=== PATIENT | female | born 1970 | race African-American/Black ===

== ENCOUNTER 2017-09-02 11:37 | Outpatient (CLI) | payer OTHER | END 2017-09-02 11:38 | disposition home or self-care (01) | LOC: DTY/OP 11:37 | PROVIDERS: ATTEND Specialist | DX: Z01.818 Encounter for other preprocedural examination (principal); E66.01 Morbid (severe) obesity due to excess calories | CPT/HCPCS: 97802 ==

== ENCOUNTER 2017-09-10 20:30 | Outpatient (CLI) | payer OTHER | END 2017-09-10 20:31 | disposition home or self-care (01) | LOC: SLEEPLAB 20:30 | PROVIDERS: ATTEND Family Medicine | DX: G47.33 Obstructive sleep apnea (adult) (pediatric) (principal); F32.9 Major depressive disorder, single episode, unspecified; E11.9 Type 2 diabetes mellitus without complications; I10 Essential (primary) hypertension; R06.83 Snoring; E66.9 Obesity, unspecified | CPT/HCPCS: 95811 ==

== ENCOUNTER 2017-09-13 13:31 | Inpatient (IN) | payer OTHER ==
[2017-09-22] MEDS ORDERED: Ketorolac Tromethamine 30 MG/ML VIAL ONE (08:09)
[2017-09-22] MEDS ORDERED: Scopolamine 1.5 mg/72 hour Patch ONE (08:09)
[2017-09-22] MEDS ORDERED: Heparin 5,000 UNITS/ML VIAL SC SCH (08:15)
[2017-09-22] MEDS ORDERED: Acetaminophen 1,000 MG in Premix Bag 1 BAG IVPB SCH (08:15)
[2017-09-22] MEDS ORDERED: cefOXitin 2 GM, Syringe 1 ML in Sterile Water 10 ML SLOW IVP SCH (08:15)
[2017-09-22] MEDS ORDERED: Ketorolac Tromethamine 30 MG/ML VIAL IVP SCH (08:15)
[2017-09-22] MEDS ORDERED: Heparin 5,000 UNITS/ML VIAL ONE (08:21)
[2017-09-22] MEDS ORDERED: Scopolamine 1.5 mg/72 hour Patch TOP SCH (08:30)
[2017-09-22] MEDS ORDERED: Bupivacaine/Epinephrine 0.25% 30 ML VIAL ONE (09:26)
[2017-09-22] MEDS ORDERED: Fentanyl 250 MCG/5 ML VIAL ONE (09:51)
[2017-09-22] MEDS ORDERED: Midazolam HCl 2 mg/2 ml Vial ONE (09:51)
[2017-09-22] MEDS ORDERED: Promethazine HCl 25 MG/ML VIAL ONE (12:24)
[2017-09-22] MEDS ORDERED: Ondansetron HCl/PF 4 MG/2 ML Vial IVP PRN (12:53)
[2017-09-22] MEDS ORDERED: Non-Formulary Medication 1 EACH PO PRN (12:53)
[2017-09-22] MEDS ORDERED: Meperidine HCl/PF 25 MG/ML VIAL SLOW IVP PRN (12:53)
[2017-09-22] MEDS ORDERED: Ketorolac Tromethamine 30 MG/ML VIAL IM/IV PRN (12:53)
[2017-09-22] MEDS ORDERED: Promethazine HCl 25 MG/ML VIAL IM/IV PRN (12:53)
[2017-09-22] MEDS ORDERED: Dextrose 50% Abboject 50 ML SYRINGE SLOW IVP PRN (13:42)
[2017-09-22] MEDS ORDERED: Morphine 4 MG/ML VIAL SLOW IVP PRN (13:42)
[2017-09-22] MEDS ORDERED: diphenhydrAMINE 50 MG/ML VIAL IVP PRN (13:42)
[2017-09-22] MEDS ORDERED: Promethazine HCl 25 MG/ML VIAL IM PRN (13:42)
[2017-09-22] MEDS ORDERED: hydrALAZINE 20 MG/ML VIAL SLOW IVP PRN (13:42)
[2017-09-22] MEDS ORDERED: Hydrocodone-Acetamin 15 ML UDCUP PO PRN (13:42)
[2017-09-22] MEDS ORDERED: Dextrose 5% in Water 1,000 ML IV PRN (13:42)
[2017-09-22] MEDS ORDERED: Insulin Regular 300 UNITS/3 ML VIAL SC PRN (13:42)
[2017-09-22] MEDS ORDERED: Lidocaine 1% PF 5 ML VIAL ONE (13:56)
[2017-09-22] MEDS ORDERED: Propofol 200 MG/20 ML VIAL ONE (13:56)
[2017-09-22] MEDS ORDERED: Ondansetron HCl/PF 4 MG/2 ML Vial ONE (13:56)
[2017-09-22] MEDS ORDERED: Glycopyrrolate 0.2 MG/ML 5 ML SYRINGE ONE (13:56)
[2017-09-22] MEDS ORDERED: PHENYLEPHRINE-NS 100 MCG/ML 10 ML SYRINGE ONE (13:56)
[2017-09-22] MEDS: Morphine 4 MG/ML VIAL SLOW IVP PRN ×2 (14:15→21:45)
[2017-09-22] MEDS: Ondansetron HCl/PF 4 MG/2 ML Vial IVP PRN ×2 (14:16→21:44)
[2017-09-22] MEDS: 1/2 NS w/KCL 20 mEq 1,000 ML IV SCH (14:18)
[2017-09-22 15:21] VITALS: BMI 42.2
[2017-09-22] MEDS: Ketorolac Tromethamine 30 MG/ML VIAL IVP SCH (18:05)
[2017-09-22] MEDS ORDERED: Enoxaparin Sodium 40 MG/0.4 ML SYRINGE SC SCH (21:00)
[2017-09-23] MEDS: 1/2 NS w/KCL 20 mEq 1,000 ML IV SCH ×2 (00:16→07:16)
[2017-09-23] MEDS: Ketorolac Tromethamine 30 MG/ML VIAL IVP SCH ×3 (00:17→13:42)
[2017-09-23 05:39] LABS: #Basophils 0.1 thou/uL (0.0-0.2); #Eosinphils 0.1 thou/uL (0.0-0.7); #Neutrophils 6.8 thou/uL (1.40-6.50); %Basophils 0.5 % (0.0-1.0); %Eosinophils 0.8 % (0.0-10.0); %Lymphocytes 27.4 % (21.0-51.0); %Monocytes 9.2 % (0.0-10.0); Hemoglobin 12.3 g/dL (12.0-16.0); Mean Corpuscular HGB CONC 33.2 g/dL (32.0-36.0); Mean Corpuscular Hemoglobin 31.9 pg (27.0-31.0); Mean Platelet Volume 7.1 fL (7.4-10.4); Platelet Count 269 thou/uL (130-400); RBC Distribution Width 11.8 % (11.5-14.5); Red Blood Cell (RBC) Count 3.86 mill/uL (4.20-5.40)
[2017-09-23 06:06] LABS: Anion Gap 12 mmol/L (10-20); BUN (Urea Nitrogen) 6 mg/dL (7.0-18.7); Calc. Creatinine Clearance 161 mL/min (70-130); Calcium 8.2 mg/dL (7.8-10.44); Carbon Dioxide 26 mmol/L (22-29); Chloride 101 mmol/L (98-107); Estimated GFR-MDRD Greater than 90; Glucose 80 mg/dL (70-105); Potassium 3.5 mmol/L (3.5-5.1); Sodium 135 mmol/L (136-145)
[2017-09-23] MEDS ORDERED: FLU VACC QS2017-18 36 mo. & older 0.5 ML SYRINGE IM ONE (09:00)
[2017-09-23] MEDS ORDERED: Pantoprazole 40 MG VIAL IVP SCH (09:00)
--- NOTE | 2017-09-23 10:45 | RAD ---
LIMITED UPPER GI WITH 15 ML OF ORAL GASTROGRAFIN: HISTORY: Recent post bariatric surgery (vertical sleeve gastrectomy). FINDINGS: There is prompt passage of contrast from the esophagus into the gastric remnant. No contrast extrava sation is seen. IMPRESSION: No evidence of obstruction or leak. POS: JANIE
[2017-09-23 12:40] VITALS: BP 124/88; TEMP 98.1
--- NOTE | 2017-09-24 14:46 | OP ---
DATE OF PROCEDURE: 09/22/2017 PREOPERATIVE DIAGNOSIS: Morbid obesity. POSTOPERATIVE DIAGNOSIS: Morbid obesity. OPERATION PERFORMED: Laparoscopic vertical sleeve gastrectomy. SURGEON: Wilmer Brody M.D. ANESTHESIA: General endotracheal. INDICATIONS: The patient is a 47-year-old morbidly obese black female. She has undergone preoperati ve education and evaluation and presents today for sleeve gastrectomy. OPERATIVE PROCEDURE IN DETAIL: Informed consent was obtained. The patient was taken to the operatin g room where general endotracheal anesthesia was obtained with the patient in supine position. Abdom en was clipped of hair, prepped with ChloraPrep, and draped in sterile fashion. Local anesthetic was infiltrated using 0.25% Marcaine with epinephrine and a 5 mm supraumbilical incision was created thr ough which a Veress needle was passed into the peritoneal cavity and pneumoperitoneum established usi ng carbon dioxide up to a pressure of 15 mmHg. A 5 mm trocar port was passed through this same incis ion. Laparoscopic camera was passed through this port. Under direct vision, 4 additional laparoscop ic ports were placed including bilateral subcostal 5 mm ports, a right paramedian 12 mm port, and a l eft paramedian 15 mm port. A 5 mm epigastric incision was created through which Nathansen retractor was passed into the abdominal cavity and used to retract the left lobe of the liver. The pylorus was identified. Beginning 5 cm proximal to the pylorus, the omental and vascular tissue was dissected away from the greater curvature of the stomach in an ascending fashion using the LigaSu re device. Hemostasis was maintained. The short gastric vessels were divided in a similar fashion. Posterior gastric adhesions were divided as well. The angle of His was mobilized and the left terry of the diaphragm was dissected as well. Once complete gastric mobilization was obtained, a 36 Yi bougie was passed by Anesthesia through the stomach down to the level of the pylorus. This was used as a guide for the subsequent gastrectom y. The gastrectomy was performed using several firings of the [place] stapler, initially using a gre en load followed by a gold load and a series of blue loads to complete the resection. Great care was taken to avoid narrowing of the incisura or the gastroesophageal junction. Once the stomach was com pletely transected, the excised portion was removed through the 15 mm port site. The fascia was clos ed at that location using a ybpnry-rd-weeip suture of 0 Vicryl using a GraNee needle. From above, an esophagogastroduodenoscopy was performed, passing the scope through the stomach to the level of the pylorus. There was no evidence of intraluminal bleeding or stricture formation. There was no air leak along the staple line as it was inspected under water. The intraluminal air was rem dino and the scope was removed as well. The staple line was inspected for hemostasis. Hemostasis obtained using electrocautery and/or Hemocl ips as necessary. All irrigant from within the abdomen was aspirated. The Nathansen retractor and a ll ports were removed under direct vision. Pneumoperitoneum was carefully evacuated. Quarter percen t Marcaine with epinephrine was infiltrated in each port site and skin edges approximated with 4-0 Mo nocryl subcuticular suture. Dermabond was placed externally. There were no complications. The ayanna ent tolerated the procedure well and was taken to recovery room in stable condition. FINDINGS: There were no unusual adhesions or anatomy. Her operation was performed with negligible b lood loss and no complications. Hemoclips were placed along the staple line to obtain meticulous sta ple line hemostasis. The patient tolerated the procedure well and the upper endoscopy was unremarkab le as well. She was taken to recovery room in stable condition.
== END 2017-09-23 13:30 | disposition home or self-care (01) | DRG 621 ==
LOC: SURG A 09-22 07:42 → EEVIPCON 09-22 17:15
PROVIDERS: ADMIT Specialist; ATTEND Specialist
PROC: 0DB64Z3 Excision of Stomach, Percutaneous Endoscopic Approach, Vertical (ICD-10-PCS; principal; 2017-09-22)
DX: E66.01 Morbid (severe) obesity due to excess calories (principal); E11.9 Type 2 diabetes mellitus without complications; I10 Essential (primary) hypertension; G47.30 Sleep apnea, unspecified; Z68.41 Body mass index [BMI] 40.0-44.9, adult; Z88.1 Allergy status to other antibiotic agents; Z88.0 Allergy status to penicillin; Z88.8 Allergy status to other drugs, medicaments and biological substances
CPT/HCPCS: 36415; 36416; 74241; 80048; 85025; 88307; 88312; 90471; 90732; A4216; C9113; G0009; J0131; J0694; J1644; J1650; J1885; J2001; J2250; J2270; J2405; J2550; J2704; J3010

== ENCOUNTER 2017-09-21 12:02 | Outpatient (CLI) | payer OTHER | END 2017-09-21 12:03 | disposition home or self-care (01) | LOC: LABBT 12:02 | PROVIDERS: ATTEND Specialist | DX: Z01.818 Encounter for other preprocedural examination (principal); E66.01 Morbid (severe) obesity due to excess calories ==

== ENCOUNTER 2018-07-18 10:52 | Outpatient (CLI) | payer OTHER | END 2018-07-18 10:53 | disposition home or self-care (01) | LOC: BICMAMMO 10:52 | PROVIDERS: ATTEND Family Medicine | DX: Z12.31 Encounter for screening mammogram for malignant neoplasm of breast (principal); Z80.3 Family history of malignant neoplasm of breast | CPT/HCPCS: 77063; 77067 ==

== ENCOUNTER 2019-05-17 20:30 | Outpatient (CLI) | payer OTHER | END 2019-05-17 20:31 | disposition home or self-care (01) | LOC: SLEEPLAB 20:30 | PROVIDERS: ATTEND Family Medicine | DX: G47.33 Obstructive sleep apnea (adult) (pediatric) (principal); E66.09 Other obesity due to excess calories; R06.83 Snoring; F32.9 Major depressive disorder, single episode, unspecified; I10 Essential (primary) hypertension; E11.9 Type 2 diabetes mellitus without complications; R53.83 Other fatigue; Z68.41 Body mass index [BMI] 40.0-44.9, adult | CPT/HCPCS: 95811 ==

== ENCOUNTER 2019-06-16 15:45 | Emergency (ER) | payer OTHER ==
[2019-06-16 16:17] LABS: #Basophils 0.2 thou/uL (0.0-0.2); #Eosinphils 0.1 thou/uL (0.0-0.7); #Lymphocytes 3.3 thou/uL (1.20-3.40); #Monocytes 0.6 thou/uL (0.11-0.59); #Neutrophils 3.9 thou/uL (1.40-6.50); %Basophils 2.3 % (0.0-1.0); %Eosinophils 1.5 % (0.0-10.0); %Lymphocytes 40.4 % (21.0-51.0); %Monocytes 7.8 % (0.0-10.0); Hemoglobin 12.9 g/dL (12.0-16.0); Mean Corpuscular HGB CONC 34.2 g/dL (32.0-36.0); Mean Corpuscular Hemoglobin 31.3 pg (27.0-31.0); Mean Corpuscular Volume 91.7 fL (78.0-98.0); Platelet Count 286 thou/uL (130-400); RBC Distribution Width 12.3 % (11.5-14.5); Red Blood Cell (RBC) Count 4.13 mill/uL (4.20-5.40); White Blood Cell (WBC) Count 8.1 thou/uL (4.8-10.8)
--- NOTE | 2019-06-16 16:25 | RAD ---
Portable frontal chest radiograph: 06/16/2019 COMPARISON: 05/11/2017 HISTORY: Chest pain FINDINGS: Lungs are clear. Heart and mediastinal contours appear within normal limits. IMPRESSION: No acute findings.
[2019-06-16 16:27] LABS: ALT (SGPT) 39 U/L (8-55); AST (SGOT) 43 U/L (5-34); Albumin 4.2 g/dL (3.5-5.0); Alkaline Phosphatase 62 U/L (40-150); Anion Gap 16 mmol/L (10-20); BUN (Urea Nitrogen) 11 mg/dL (7.0-18.7); Bilirubin, Total 0.6 mg/dL (0.2-1.2); Calc. Creatinine Clearance 0 mL/min (70-130); Carbon Dioxide 23 mmol/L (22-29); Chloride 105 mmol/L (98-107); Estimated GFR-MDRD Greater than 90; Globulin 3.6 g/dL (2.4-3.5); Glucose 64 mg/dL (70-105); Potassium 3.1 mmol/L (3.5-5.1); Protein, Total 7.8 g/dL (6.0-8.3); Sodium 141 mmol/L (136-145)
[2019-06-16] MEDS ORDERED: Potassium Chloride 20 MEQ TAB ONE (17:24)
== END 2019-06-16 19:24 | disposition home or self-care (01) ==
LOC: SCSER 15:45
DX: R07.9 Chest pain, unspecified (principal); M19.90 Unspecified osteoarthritis, unspecified site; M79.7 Fibromyalgia; F41.9 Anxiety disorder, unspecified
CPT/HCPCS: 36415; 71045; 80053; 84484; 85025; 93005

== ENCOUNTER 2020-08-08 10:05 | Outpatient (CLI) | payer OTHER ==
--- NOTE | 2020-08-08 11:49 | MMO ---
Bilateral MAMMO Bilat Screen [facility]. CLINICAL HISTORY: Patient is 50 years old and is seen for screening. The patient has the following family history of breast cancer: mother, at age 60, malignant (generic). The patient has no personal history of cancer. VIEWS: The views performed were: bilateral craniocaudal with tomosynthesis and bilateral mediolateral oblique with tomosynthesis. FILMS COMPARED: The present examination has been compared to prior imaging studies performed at [facility] on 07/18/2018, and at [facility] on 08/25/2010 and 04/21/2012. This study has been interpreted with the assistance of computer-aided detection. MAMMOGRAM FINDINGS: The breasts are heterogeneously dense, which could obscure a lesion on mammography. Finding 1: There is a round mass measuring 8 millimeters with circumscribed margins seen in the central region of the right breast. Finding 2: There is a mass measuring 11 x 14 mm with circumscribed margins seen in the left breast at 3 o'clock located 7 centimeters from the nipple. Finding 3: There is a round mass measuring 5 millimeters with circumscribed margins seen in the outer region of the left breast located 3 centimeters from the nipple. IMPRESSION: FINDING 1: MASS IN THE RIGHT BREAST REQUIRES ADDITIONAL EVALUATION. AN ULTRASOUND EXAM IS RECOMMENDED. FINDING 2: MASS IN THE LEFT BREAST AT 3 O'CLOCK LOCATED 7 CENTIMETERS FROM THE NIPPLE REQUIRES ADDITIONAL EVALUATION. AN ULTRASOUND EXAM IS RECOMMENDED. FINDING 3: MASS IN THE OUTER REGION OF THE LEFT BREAST LOCATED 3 CENTIMETERS FROM THE NIPPLE REQUIRES ADDITIONAL EVALUATION. AN ULTRASOUND EXAM IS RECOMMENDED. THE RESULTS OF THIS EXAM WERE SENT TO THE PATIENT. ACR BI-RADS Category 0 - Incomplete: Need additional imaging evaluation. [facility] will notify the patient of the need for additional imaging services. MAMMOGRAPHY NOTE: 1. A negative mammogram report should not delay a biopsy if a dominant of clinically suspicious mass is present. 2. Approximately 10% to 15% of breast cancers are not detected by mammography. 3. Adenosis and dense breasts may obscure an underlying neoplasm. Reported by: ABUNDIO PARIS MD Electonically Signed: [id number]
== END 2020-08-08 10:06 | disposition home or self-care (01) ==
LOC: BICMAMMO 10:05
PROVIDERS: ATTEND Family Medicine
DX: Z12.31 Encounter for screening mammogram for malignant neoplasm of breast (principal); Z80.3 Family history of malignant neoplasm of breast; N63.21 Unspecified lump in the left breast, upper outer quadrant; N63.10 Unspecified lump in the right breast, unspecified quadrant
CPT/HCPCS: 77063; 77067

== ENCOUNTER 2020-08-15 13:55 | Outpatient (CLI) | payer OTHER ==
--- NOTE | 2020-08-15 14:47 | ULT ---
ULTRASOUND LEFT BREAST: 08/15/20 INDICATION: Ultrasound left breast is performed in follow-up to mammograms which showed two circumscribed lesions in the outer left breast. FINDINGS: There are scattered cysts seen throughout the left breast. There is a 1.0 cm cyst at 2 o'clock which corresponds to the larger nodule seen on mammography. A smaller 3 to 4 mm cyst is seen at 3 o'clock. There are other scattered cysts. No solid lesion or suspicious abnormality. IMPRESSION: Numerous left breast cysts. Recommend the patient be returned to routine mammogram follow-up. BIRADS 2: Benign Finding(s) Routine annual screening mammography (for women over age 40). POS: OFF
--- NOTE | 2020-08-15 14:50 | ULT ---
ULTRASOUND RIGHT BREAST: 08/15/20 INDICATIONS: Ultrasound right breast was performed to assess a nodular density seen in the mid right breast on CC view. Scattered cysts are seen in the right breast with ultrasound. There is a 4 to 6 mm cyst at 6 o'clock that probably corresponds to the mammogram nodule. No suspicious sonographic finding. IMPRESSION: Right breast cyst. Recommend patient be returned to routine mammogram follow-up. BIRADS 2: Benign Fin ding(s) Routine annual screening mammography (for women over age 40). POS: OFF
== END 2020-08-15 13:56 | disposition home or self-care (01) ==
LOC: BICULT 13:55
PROVIDERS: ATTEND Family Medicine
DX: R92.8 Other abnormal and inconclusive findings on diagnostic imaging of breast (principal); N63.0 Unspecified lump in unspecified breast

== ENCOUNTER 2021-03-17 14:35 | Outpatient (CLI) | payer OTHER | END 2021-03-17 14:36 | disposition home or self-care (01) | LOC: SCSRAD 14:35 | PROVIDERS: ATTEND Internal Medicine Rheumatology | DX: Z51.81 Encounter for therapeutic drug level monitoring (principal); Z79.899 Other long term (current) drug therapy | CPT/HCPCS: 71046 ==